=== PATIENT | female | born 1970 | race Caucasian/White ===

== ENCOUNTER → 2017-01-15 | Outpatient (CLI) | payer MEDICARE, OTHER ==
--- NOTE | 2017-01-15 15:24 | RAD ---
Examination: MRI of the left knee without contrast. HISTORY History of chronic medial knee pain. COMPARISON None available. TECHNIQUE Multiplanar, multisequence MR imaging of the left knee was performed the contrast Findings: The anterior cruciate ligament, posterior cruciate ligament appear intact. There is horizontal signal identified in the body and posterior on the medial meniscus likely degeneration with the signal extending to the inferior articular surface of the junction of the body and posterior horn of the medial meniscus likely tear. There is a multiloculated cystic structure identified extending from themedial meniscus extending medially and posteriorly likely a meniscal cyst, measuring about 4.5 centimeters secondary to degeneration of the medial meniscus. This meniscal cyst is seen just medial to the body of the medial meniscus and posterior to the posterior on the medial meniscus. The lateral meniscus appears intact. The medial collateral ligament is intact. The lateral collateral ligamentous complex including the fibular collateral ligament, biceps femoris tendon, popliteus tendon appear intact . The extensor mechanism is intact. The medial retinaculum, lateral retinaculum appear intact. Small popliteal cyst is identified. There is minimal superficial fraying of cartilage identified in the medial compartment. The cartilage in the lateral and patellofemoral compartments grossly appears unremarkable. IMPRESSION 1.Degenerative tear of the medial meniscus in the peripheral portion of the junction of the body and posterior horn, best visualized on series 8 image #7 with a multiloculated cystic structure extending medially and posteriorly to the medial meniscus likely meniscus cyst. 2. Grade 1 chondromalacia medial compartment. 3. Small popliteal cyst. Electronically signed by: Damián Reyes (Jan 15, 2017 15:23:10)
== END | disposition home or self-care (01) ==
LOC: MRI 09:30
PROVIDERS: ATTEND Orthopaedic Surgery
DX: S83.242A Other tear of medial meniscus, current injury, left knee, initial encounter (principal); M71.22 Synovial cyst of popliteal space [Baker], left knee; M94.262 Chondromalacia, left knee; X58.XXXA Exposure to other specified factors, initial encounter; Y93.89 Activity, other specified; Y92.89 Other specified places as the place of occurrence of the external cause; Y99.8 Other external cause status
CPT/HCPCS: 73721